=== PATIENT | male | born 1940 | race Caucasian/White ===

== ENCOUNTER 2022-02-15 15:53 | Inpatient (IN) | payer MEDICARE, BC ==
[2022-02-15] MEDS ORDERED: Ondansetron 4 MG Tab.DIS PO PRN (17:28)
[2022-02-15] MEDS ORDERED: Sodium Chloride 0.9% 10 ML Syringe FLUSH PRN (17:28)
[2022-02-15] MEDS ORDERED: HYDROmorphone 0.5 MG/0.5 ML Syringe IVPUSH PRN (17:28)
[2022-02-15] MEDS ORDERED: LORazepam 2 MG/ML SDV IVPUSH PRN (17:28)
== END 2022-02-22 09:18 | disposition hospice, inpatient (51) | DRG 951 ==
LOC: JD.ED 15:53 → JD.MS 17:28
PROVIDERS: ADMIT Internal Medicine; ATTEND Internal Medicine
DX: Z51.5 Encounter for palliative care (principal); C67.9 Malignant neoplasm of bladder, unspecified; Z95.2 Presence of prosthetic heart valve; C64.9 Malignant neoplasm of unspecified kidney, except renal pelvis; C77.2 Secondary and unspecified malignant neoplasm of intra-abdominal lymph nodes; Z79.899 Other long term (current) drug therapy; C25.9 Malignant neoplasm of pancreas, unspecified; Z66 Do not resuscitate; C22.8 Malignant neoplasm of liver, primary, unspecified as to type; K72.10 Chronic hepatic failure without coma; C67.8 Malignant neoplasm of overlapping sites of bladder; N18.9 Chronic kidney disease, unspecified; H91.90 Unspecified hearing loss, unspecified ear; H54.7 Unspecified visual loss; Z95.4 Presence of other heart-valve replacement; Z88.1 Allergy status to other antibiotic agents; Z79.01 Long term (current) use of anticoagulants
CPT/HCPCS: 87641